=== PATIENT | male | born 1995 | race Caucasian/White ===

== ENCOUNTER 2017-08-21 07:46 | Emergency (ER) | payer MEDICAID ==
[2017-08-21 07:57] VITALS: BP 133/71
--- NOTE | 2017-08-21 08:26 | ER Document Report ---
ED Hand/Wrist Injury - General Mode of Arrival: Ambulatory Information source: Patient TRAVEL OUTSIDE OF THE [place] IN LAST 30 DAYS: No <LEOBARDO RICKS - Last Filed: 08/21/17 11:14> <TANK COATES - Last Filed: 08/21/17 11:38> - General Chief Complaint: Wrist Injury Stated Complaint: WRIST PAIN Time Seen by Provider: 08/21/17 08:11 Notes: Patient is a 22-year-old male who presents to the emergency department today with complaints of right wrist pain. Patient states that approximately 1 week ago he was punching a punching bag video game and he "heard pop". Patient states later he was playing air hockey and he felt like his wrist was "popping in and out". Patient states he has minimal pain now but he "wants to make sure his wrist is okay so that he can play softball". (LEOBARDO RICKS) Past Medical History - General Information source: Patient - Social History Smoking Status: Current Every Day Smoker Cigarette use (# per day): Yes Chew tobacco use (# tins/day): No Frequency of alcohol use: None Drug Abuse: None Lives with: Family Family History: Reviewed & Not Pertinent Neurological Medical History: Reports: Hx Migraine Surgical Hx: Negative - Immunizations Immunizations up to date: Yes Hx Diphtheria, Pertussis, Tetanus Vaccination: Yes <LEOBARDO RICKS - Last Filed: 08/21/17 11:14> Review of Systems - Review of Systems Constitutional: No symptoms reported EENT: No symptoms reported Cardiovascular: No symptoms reported Respiratory: No symptoms reported Gastrointestinal: No symptoms reported Genitourinary: No symptoms reported Male Genitourinary: No symptoms reported Musculoskeletal: See HPI, Joint pain - right wrist Skin: No symptoms reported Hematologic/Lymphatic: No symptoms reported Neurological/Psychological: No symptoms reported -: Yes All other systems reviewed and negative <LEOBARDO RICKS - Last Filed: 08/21/17 11:14> Physical Exam <LEOBARDO RICKS - Last Filed: 08/21/17 11:14> <TANK COATES - Last Filed: 08/21/17 11:38> - Vital signs Vitals: Temp Pulse Resp BP Pulse Ox 97.8 F 58 L 16 133/71 H 100 08/21/17 07:56 08/21/17 07:56 08/21/17 07:56 08/21/17 07:56 08/21/17 07:56 - Notes Notes: Physical Exam: General: Alert, appears well. HEENT: Normocephalic. Atraumatic. PERRLA. Extraocular movements intact. Oropharynx clear. Neck: Supple. Respiratory: No respiratory distress. Abdominal: Normal Inspection. No distension. Extremities: Edema over the right ulnar styloid, minimal pain with palpation. No pain with ROM. Neurological: Normal cognition. AAOx4. Normal speech. Psychological: Normal affect. Normal Mood. Skin: Warm. Dry. Normal color. (LEOBARDO RICKS) Course <LEOBARDO RICKS - Last Filed: 08/21/17 11:14> - Diagnostic Test Radiology reviewed: Image reviewed, Reports reviewed - X-ray shows soft tissue swelling around the ulnar styloid without fracture <TANK COATES - Last Filed: 08/21/17 11:38> - Re-evaluation Re-evalutation: 08/21/17 11:37 The Velcro cock-up splint was placed on the right wrist by the PCT. It fits well and provides good support and stability and protection of the wrist where it is sprained at the ulnar styloid. (TANK COATES) - Vital Signs Vital signs: Temp Pulse Resp BP Pulse Ox 97.8 F 58 L 16 133/71 H 100 08/21/17 07:56 08/21/17 07:56 08/21/17 07:56 08/21/17 07:56 08/21/17 07:56 Discharge <LEOBARDO RICKS - Last Filed: 08/21/17 11:14> <TANK COATES - Last Filed: 08/21/17 11:38> - Discharge Clinical Impression: Right wrist sprain Qualifiers: Encounter type: initial encounter Qualified Code(s): S63.501A - Unspecified sprain of right wrist, initial encounter Condition: Stable Disposition: HOME, SELF-CARE Additional Instructions: Your x-ray does not show a fracture. There is soft tissue swelling around the ulnar styloid consistent with a sprain to this area. The treatment of a sprain this many days out, is splinting the wrist to limit motion, elevation, and moist heat. You should follow-up with an orthopedic doctor to ensure proper healing of this injury. Referrals: [facility] [Provider Group] - Follow up in 1 week Scribe Attestation: 08/21/17 09:38 I personally performed the services described in the documentation, reviewed and edited the documentation which was dictated to the scribe in my presence, and it accurately records my words and actions. (TANK COATES) Scribe Documentation - Scribe Written by Harsha:: Harsha Gordillo, 08/21/2017 [id number] acting as scribe for :: Brian <LEOBARDO RICKS - Last Filed: 08/21/17 11:14>
--- NOTE | 2017-08-21 09:30 | RADIOLOGY REPORT (SQ) ---
EXAM DESCRIPTION: WRIST RIGHT 3 VIEWS COMPLETED DATE/TIME: 08/21/2017 9:15 am REASON FOR STUDY: pain, swelling at ulnar styloid COMPARISON: None. NUMBER OF VIEWS: Three views. TECHNIQUE: AP, lateral, and oblique radiographic images acquired of the right wrist. LIMITATIONS: None. FINDINGS: MINERALIZATION: Normal. BONES: No acute fracture or dislocation. No worrisome bone lesions. Normal alignment. SOFT TISSUES: There is mild right wrist soft tissue swelling. No radiopaque foreign body. No soft t issue gas. OTHER: No other significant finding. IMPRESSION: Soft tissue swelling without fracture. TECHNICAL DOCUMENTATION: JOB ID: [id number] [employer]- All Rights Reserved
== END 2017-08-21 09:44 | disposition home or self-care (01) ==
LOC: ER 07:46
DX: S63.501A Unspecified sprain of right wrist, initial encounter (principal); M25.531 Pain in right wrist; F17.210 Nicotine dependence, cigarettes, uncomplicated; X58.XXXA Exposure to other specified factors, initial encounter
CPT/HCPCS: 99283; 73110; L3908

== ENCOUNTER 2018-09-01 19:38 | Emergency (ER) | payer SELFPAY ==
--- NOTE | 2018-09-01 20:47 | RADIOLOGY REPORT (SQ) ---
EXAM DESCRIPTION: KNEE LEFT 4 VIEW COMPLETED DATE/TIME: 09/01/2018 8:13 pm REASON FOR STUDY: knee injury COMPARISON: None. NUMBER OF VIEWS: Four views. TECHNIQUE: AP, lateral, and both oblique radiographic images acquired of the left knee. LIMITATIONS: None. FINDINGS: MINERALIZATION: Normal. BONES: No acute fracture or dislocation. No worrisome bone lesions. JOINT: Minimal joint effusion. SOFT TISSUES: No soft tissue swelling. No radio-opaque foreign body. OTHER: No other significant finding. IMPRESSION: Minimal joint effusion. No osseous abnormality. TECHNICAL DOCUMENTATION: JOB ID: [id number] [employer]- All Rights Reserved Reading location - IP/workstation name: [email or web address]
--- NOTE | 2018-09-01 23:18 | ER Document Report ---
HPI - HPI Patient complains to provider of: Knee pain Pain Level: 4 Context: Patient is a 23-year-old male presenting to the emergency department complaining of left knee pain. Patient states he jumped off of a one-story roof and felt his left knee buckle. Patient denies hitting his head neck or back. Denies LOC or vomiting. Patient states he has a history of a torn ACL and MCL these injuries were years ago. Past medical history: None Medications: None Allergies: None Patient admits to everyday cigarette smoking, denies illicit drug use, denies EtOH use. - REPRODUCTIVE Reproductive: DENIES: : - MUSCULOSKELETAL Musculoskeletal: REPORTS: Extremity pain - L knee Past Medical History - General Information source: Patient - Social History Smoking Status: Current Every Day Smoker Frequency of alcohol use: None Drug Abuse: None Lives with: Family Family History: Reviewed & Not Pertinent Patient has suicidal ideation: No Patient has homicidal ideation: No Neurological Medical History: Reports: Hx Migraine Renal/ Medical History: Denies: Hx Peritoneal Dialysis - Immunizations Immunizations up to date: Yes Hx Diphtheria, Pertussis, Tetanus Vaccination: Yes Vertical Provider Document - CONSTITUTIONAL Agree With Documented VS: Yes Notes: GENERAL: Alert, interacts well. No acute distress. HEAD: Normocephalic, atraumatic. EYES: Pupils equal, round, and reactive to light. Extraocular movements intact. ENT: Oral mucosa moist, tongue midline. NECK: Full range of motion. Supple. Trachea midline. LUNGS: Clear to auscultation bilaterally, no wheezes, rales, or rhonchi. No respiratory distress. HEART: Regular rate and rhythm. No murmur ABDOMEN: Soft, non-tender. Non-distended. Bowel sounds present in all 4 quadrants. EXTREMITIES: Moves all 4 extremities spontaneously. normal radial and dorsalis pedis pulses bilaterally. No cyanosis. Minor swelling noted left knee. No pain left hip or left ankle. Positive pain upon anterior drawer. No pain valgus or varus movements. BACK: no cervical, thoracic, lumbar midline tenderness. No saddle anesthesia, normal distal neurovascular exam. NEUROLOGICAL: Alert and oriented x3. Normal speech. cranial nerves II through XII grossly intact PSYCH: Normal affect, normal mood. SKIN: Warm, dry, normal turgor. No rashes or lesions noted. - INFECTION CONTROL TRAVEL OUTSIDE OF THE [place] IN LAST 30 DAYS: No Course - Re-evaluation Re-evalutation: 09/01/18 23:16 Due to your physical exam you most likely entered your ACL. Unfortunately you need an MRI in order to determine this fully. I have given you a phone number for orthopedics for you should follow-up with. You should also take Tylenol and Motrin at home for discomfort. Please return to the emergency room for any other worsening symptoms. - Vital Signs Vital signs: Temp Pulse Resp BP Pulse Ox 98.4 F 69 18 128/72 H 100 09/01/18 19:43 09/01/18 19:43 09/01/18 19:43 09/01/18 19:43 09/01/18 19:43 Discharge - Discharge Clinical Impression: Knee injury Qualifiers: Encounter type: initial encounter Laterality: left Qualified Code(s): S89.92XA - Unspecified injury of left lower leg, initial encounter Condition: Stable Disposition: HOME, SELF-CARE Instructions: Use of Crutches ([facility]), Ice & Elevation ([facility]), Suspected Internal Knee Injury ([facility]), Knee Immobilizing Splint ([facility]) Additional Instructions: As we discussed you should follow-up with orthopedics in the next 24-48 hours. Likely you have an internal knee injury due to your x-rays being negative. Please use the knee immobilizer and crutches as needed. Take [id number] Tylenol and Motrin for the discomfort. Please return to the emergency room for any other worsening Forms: Return to Work Referrals: CHANDA BOSTON MD [ACTIVE STAFF] - Follow up as needed
[2018-09-01 23:33] VITALS: BP 135/81
== END 2018-09-01 23:33 | disposition home or self-care (01) ==
LOC: ER 19:38
DX: S89.92XA Unspecified injury of left lower leg, initial encounter (principal); F17.210 Nicotine dependence, cigarettes, uncomplicated; W17.89XA Other fall from one level to another, initial encounter
CPT/HCPCS: 99283; 73564; L1830